=== PATIENT | male | born 1970 | race Caucasian/White ===

== ENCOUNTER 2018-01-30 03:24 | Emergency (ER) | payer BC, OTHER ==
[2018-01-30] MEDS ORDERED: Diphtheria,Pertussis(Acell),Tetanus Vaccine 0.5 ML SDV IM ONE (04:24)
[2018-01-30] MEDS ORDERED: Bacitracin/Neomycin/Polymyxin B Oint 0.9 GM U/D Packet TOP ONE (04:25)
--- NOTE | 2018-01-30 04:34 | EDM.PDOC ---
ED HPI GENERAL MEDICAL PROBLEM - General Chief Complaint: General Stated Complaint: L ARM LACERATION Time Seen by Provider: 01/30/18 04:00 Source of Information: Reports: Patient History Limitations: Reports: No Limitations - History of Present Illness INITIAL COMMENTS - FREE TEXT/NARRATIVE: Laceration of left forearm sustained with patient's arm came down onto metal. No loss of function. No numbness/tingling. Bleeding controlled. No other complaints. - Related Data Allergies Allergy/AdvReac Type Severity Reaction Status Date / Time No Known Allergies Allergy Verified 01/30/18 03:31 Home Meds: Home Meds Losartan [Cozaar] 100 mg PO DAILY 01/30/18 [History] Warfarin Sodium [Jantoven] 2.5 mg PO MOWEFR 01/30/18 [History] Warfarin Sodium [Jantoven] 5 mg PO SUTUTHSA 01/30/18 [History] atorvaSTATin [Lipitor] 10 mg PO BEDTIME 01/30/18 [History] traZODone HCl [Trazodone HCl] 50 mg PO BEDTIME PRN 01/30/18 [History] Past Medical History Cardiovascular History: Reports: High Cholesterol, Hypertension Respiratory History: Reports: Other (See Below) Other Respiratory History: blood clot in leg Hematologic History: Reports: Polycythemia Social & Family History - Family History Family Medical History: Noncontributory - Tobacco Use Smoking Status *Q: Current Every Day Smoker Years of Tobacco use: 32 Packs/Tins Daily: 0.5 - Caffeine Use Caffeine Use: Reports: Soda ED ROS GENERAL - Review of Systems Review Of Systems: ROS reveals no pertinent complaints other than HPI. ED EXAM, GENERAL - Physical Exam Exam: See Below Exam Limited By: No Limitations General Appearance: Alert, WD/WN, No Apparent Distress Eye Exam: Bilateral Eye: EOMI, PERRL Nose: No: Nasal Deformity, Nasal Swelling, Nasal Drainage Throat/Mouth: Normal Voice, No Airway Compromise Head: Atraumatic, Normocephalic Neck: Supple, Full Range of Motion Respiratory/Chest: No Respiratory Distress Peripheral Pulses: 2+: Radial (L) Extremities: Normal Range of Motion, Normal Capillary Refill, Other (laceration noted left forearm. Stellate wound margins, 1.5cm across) Neurological: Alert, Oriented, Normal Cognition, Normal Gait, No Motor/Sensory Deficits Psychiatric: Normal Affect, Normal Mood Skin Exam: Warm, Dry, Normal Color, Wound/Incision (see above) ED GENERAL MEDICAL PROCEDURES - Laceration/Wound Repair Left Lower Arm Lac/wound length in cm: 1.5 Appearance: Subcutaneous, Stellate, Mildly Contaminated (metal dust) Distal NVT: Neuro & Vascular Intact, No Tendon Injury Anesthetic Type: Local Local Anesthesia - Lidocaine (Xylocaine): 1% Plain Local Anesthetic Volume: 5cc Skin Prep: Providone-Iodine (Betadine) Exploration/Debridement/Repair: Wound Explored, In a Bloodless Field, Explored to Base, Minimal Debridement, No Foreign Material Found, Wound Margins Revised Closed with: Sutures Suture Size: 3-0 # of Sutures: 3 Drain Placement: No Sterile Dressing Applied: Nurse Tetanus Status Addressed: Yes Complications: No Course - Vital Signs Last Recorded V/S: Last Vital Signs Temp 37.3 C 01/30/18 03:25 Pulse 86 01/30/18 03:25 Resp 16 01/30/18 03:25 BP 138/88 01/30/18 03:25 Pulse Ox 100 01/30/18 03:25 - Orders/Labs/Meds Orders: Active Orders 24 hr Category Date Time Status Vaccines to be Administered [RC] PER UNIT ROUTINE Care 01/30/18 04:24 Active Meds: Medications Discontinued Medications Generic Name Dose Route Start Last Admin Trade Name Darrylq PRN Reason Stop Dose Admin Diphtheria/Tetanus/Acell Pertussis 0.5 ml 01/30/18 04:24 Adacel IM 01/30/18 04:25 .ONCE ONE Lidocaine HCl 5 ml 01/30/18 04:11 01/30/18 04:14 Xylocaine-Mpf 1% INJECT 01/30/18 04:12 5 ml ONETIME ONE Administration Neomycin/Polymyxin/Bacitracin 1 each 01/30/18 04:25 01/30/18 04:30 Triple Antibiotic Oint TOP 01/30/18 04:26 1 each ONETIME ONE Administration - Re-Assessments/Exams Free Text/Narrative Re-Assessment/Exam: 01/30/18 04:40 Laceration repaired. Topical antibiotic and bandage applied. Tetanus updated. Wound care and precautions reviewed. Departure - Departure Time of Disposition: 04:33 Disposition: Home, Self-Care 01 Condition: Good Clinical Impression: Laceration of arm Qualifiers: Encounter type: initial encounter Laterality: left Qualified Code(s): S41.112A - Laceration without foreign body of left upper arm, initial encounter - Discharge Information Instructions: Stitches, Vershire, or Adhesive Wound Closure, [id number] Referrals: PCP,Unobtain [Ordering Only Provider] - Forms: ED Department Discharge Additional Instructions: Follow up as needed if you have problems/signs of infection. Sutures out next Saturday. - My Orders Last 24 Hours: My Active Orders 01/30/18 04:24 Vaccines to be Administered [RC] PER UNIT ROUTINE - Assessment/Plan Last 24 Hours: My Active Orders 01/30/18 04:24 Vaccines to be Administered [RC] PER UNIT ROUTINE
== END 2018-01-30 04:52 | disposition home or self-care (01) ==
LOC: LL.ED 03:24
DX: S51.812A Laceration without foreign body of left forearm, initial encounter (principal); I10 Essential (primary) hypertension; E78.00 Pure hypercholesterolemia, unspecified; F17.210 Nicotine dependence, cigarettes, uncomplicated; Z79.01 Long term (current) use of anticoagulants; Z79.899 Other long term (current) drug therapy; W26.8XXA Contact with other sharp object(s), not elsewhere classified, initial encounter; Z23 Encounter for immunization
CPT/HCPCS: 12001; 90471; 90715; 99283